=== PATIENT | female | born 1995 | race African-American/Black ===

== ENCOUNTER 2021-03-22 14:25 | Outpatient (CLI) | payer OTHER, SELFPAY ==
[2021-03-22 15:26] LABS: BASOPHILS % (AUTO) 0.3 % (0.0-2.0); EOSINOPHILS % (AUTO) 0.5 % (0.0-4.0); HEMATOCRIT 36.3 % (36-48); HEMOGLOBIN 11.8 g/dL (12.0-16.0); LYMPHOCYTES # (AUTO) 1.9 K/uL (2.5-16.5); LYMPHOCYTES % (AUTO) 31.1 % (20.5-51.1); MEAN CORPUSCULAR HEMOGLOBIN 25 pg (27-31); MEAN CORPUSCULAR HGB CONC 33 g/dL (33-37); MONOCYTES # (AUTO) 0.4 K/uL (0.8-1.0); MONOCYTES % (AUTO) 6.8 % (1.7-9.3); NEUTROPHILS # (AUTO) 3.8 K/uL (1.8-7.7); NEUTROPHILS % (AUTO) 61.3 % (42.2-75.2); PLATELET COUNT (AUTO) 157 K/uL (140-450); RED BLOOD CELL COUNT(AUTO) 4.72 MIL/uL (4.20-5.40); RED CELL DISTRIBUTION WIDTH 13.9 % (11.6-13.7); WHITE BLOOD COUNT (AUTO) 6.2 K/uL (4.8-10.8)
[2021-03-22 15:35] LABS: APPEARANCE,URINE SL CLOUDY (CLEAR); BILIRUBIN,URINE 1+ (NEGATIVE); BLOOD, URINE NEGATIVE (NEGATIVE); COLOR,URINE DARK YELLOW (YELLOW); LEUKOCYTE ESTERASE ,URINE NEGATIVE (NEGATIVE); NITRITE, URINE NEGATIVE (NEGATIVE); UGLUCOSE NEGATIVE (NEGATIVE)
[2021-03-22 18:14] LABS: ALBUMIN 3.5 g/dL (3.4-5.0); ANION GAP 16.6 (8-16); CREATININE 0.8 mg/dL (0.6-1.3); POTASSIUM 3.6 mmol/L (3.5-5.1); TOTAL BILIRUBIN 0.3 mg/dL (0.0-1.0)
== END 2021-03-22 23:59 | disposition home or self-care (01) ==
LOC: MLB 14:25 → EDSTATUS 03-24 07:30
PROVIDERS: ATTEND Obstetrics & Gynecology
DX: Z01.812 Encounter for preprocedural laboratory examination (principal); Z20.822 Contact with and (suspected) exposure to COVID-19; N87.1 Moderate cervical dysplasia
CPT/HCPCS: 36415; 80053; 81003; 85025; 86886; 86900; 86901; 87086

== ENCOUNTER 2022-01-19 06:24 | Day surgery (SDC) | payer OTHER ==
[~2022-01-19] VITALS: Ht 170.2 cm; Wt 65.3 kg
[~2022-01-19 06:24] MED LIST: FERR-212 PO; PNV91TAB8 PO
[2022-01-19 07:17] LABS: BASOPHILS # (AUTO) 0.1 K/uL (0.00-0.22); EOSINOPHILS # (AUTO) 0.1 K/uL (0-0.4); EOSINOPHILS % (AUTO) 1.9 % (0.0-4.0); HEMATOCRIT 37.5 % (36-48); HEMOGLOBIN 11.9 g/dL (12.0-16.0); LYMPHOCYTES # (AUTO) 2.8 K/uL (2.5-16.5); LYMPHOCYTES % (AUTO) 52.1 % (20.5-51.1); MEAN CORPUSCULAR HEMOGLOBIN 25 pg (27-31); MEAN CORPUSCULAR HGB CONC 32 g/dL (33-37); MEAN CORPUSCULAR VOLUME 77.3 fL (80-94); MONOCYTES # (AUTO) 0.4 K/uL (0.8-1.0); MONOCYTES % (AUTO) 7.9 % (1.7-9.3); NEUTROPHILS % (AUTO) 37.1 % (42.2-75.2); PLATELET COUNT (AUTO) 172 K/uL (140-450); RED BLOOD CELL COUNT(AUTO) 4.85 MIL/uL (4.20-5.40); RED CELL DISTRIBUTION WIDTH 14.6 % (11.6-13.7); WHITE BLOOD COUNT (AUTO) 5.3 K/uL (4.8-10.8)
[2022-01-19] MEDS ORDERED: fentaNYL citrate 0.05 MG/ML VIAL ONE (07:22)
[2022-01-19] MEDS ORDERED: PROPOFOL 200 MG/20 ML VIAL IV ONE (07:23)
[2022-01-19 07:36] LABS: ALBUMIN 3.5 g/dL (3.4-5.0); ANION GAP 10.6 (8-16); CARBON DIOXIDE 29.4 mmol/L (21-32); CREATININE 0.8 mg/dL (0.6-1.3); TOTAL BILIRUBIN 0.3 mg/dL (0.0-1.0)
[2022-01-19] MEDS ORDERED: SEVOFLURANE 250 ML BTL INH ONE (08:05)
[2022-01-19] MEDS ORDERED: GLYCOPYRROLATE 0.2 MG/ML VIAL ONE (08:19)
[2022-01-19] MEDS ORDERED: DEXAMETHASONE 4 MG/ML VIAL ONE (08:27)
[2022-01-19] MEDS ORDERED: ONDANSETRON 4 MG/2 ML VIAL ONE (08:27)
[2022-01-19] MEDS ORDERED: diphenhydrAMINE 50 MG/ML VIAL IVP PRN ×2 (08:35→08:50)
[2022-01-19] MEDS ORDERED: oxyCODONE/APAP 5/325 MG 1 TAB TAB PO PRN (08:35)
[2022-01-19] MEDS ORDERED: ONDANSETRON 4 MG/2 ML VIAL IVP PRN ×2 (08:35→08:50)
[2022-01-19] MEDS ORDERED: LACTATED RINGERS 1,000 ML IV SCH (08:50)
[2022-01-19] MEDS ORDERED: HYDROmorphone 1 MG/ML AMP IVP PRN (08:50)
[2022-01-19] MEDS ORDERED: MEPERIDINE 25 MG/ML SYR IVP PRN (08:50)
== END 2022-01-19 11:00 | disposition home or self-care (01) ==
LOC: MDS 06:24 → MMU 06:27 → MDS 11:00
PROVIDERS: ATTEND Obstetrics & Gynecology
DX: N87.1 Moderate cervical dysplasia (principal); N72 Inflammatory disease of cervix uteri; Z20.822 Contact with and (suspected) exposure to COVID-19; Z79.899 Other long term (current) drug therapy
CPT/HCPCS: 36415; 57522; 80053; 81025; 85025; 86886; 86900; 86901; 87426; 88305; J1100; J2405; J2704; J3010; J3490

== ENCOUNTER 2023-08-30 02:10 | Emergency (ER) | payer MEDICAID, OTHER ==
[~2023-08-30] VITALS: Ht 170.2 cm; Wt 72.6 kg
[2023-08-30 02:10] VITALS: BP 116/68; PULSE 82; RESP 17; TEMP 97.8; O2SAT 99
[2023-08-30] MEDS ORDERED: predniSONE 20 MG TAB PO ONE (03:05)
[2023-08-30] MEDS ORDERED: diphenhydrAMINE 50 MG/ML VIAL IM ONE (03:05)
[2023-08-30] MEDS ORDERED: PRED20TA5 PO (03:07)
[2023-08-30] MEDS ORDERED: DIPH25TA53 PO (03:07)
[2023-08-30 03:28] VITALS: BP 116/68; PULSE 82; RESP 17; TEMP 97.8; O2SAT 99
== END 2023-08-30 03:28 | disposition home or self-care (01) ==
LOC: MED 02:10
DX: R21 Rash and other nonspecific skin eruption (principal); L29.9 Pruritus, unspecified; J02.9 Acute pharyngitis, unspecified; Z79.899 Other long term (current) drug therapy; Z91.040 Latex allergy status
CPT/HCPCS: 96372; 99283; J1200; J7512

== ENCOUNTER 2023-12-28 16:43 | Emergency (ER) | payer MEDICAID ==
[~2023-12-28] VITALS: Ht 170.2 cm; Wt 65.3 kg
[~2023-12-28 16:43] MED LIST changes: +DIPH25TA53 PO; +PRED20TA5 PO
[2023-12-28 17:03] VITALS: BP 108/63; PULSE 79; RESP 19; TEMP 99.6; O2SAT 97
[2023-12-28 17:51] LABS: APPEARANCE,URINE CLEAR (CLEAR); BILIRUBIN,URINE NEGATIVE (NEGATIVE); BLOOD, URINE 1+ (NEGATIVE); COLOR,URINE YELLOW (YELLOW); LEUKOCYTE ESTERASE ,URINE NEGATIVE (NEGATIVE); NITRITE, URINE NEGATIVE (NEGATIVE); PH,URINE 6.5 (5.0-9.0); PROTEIN,URINE NEGATIVE (NEGATIVE); UGLUCOSE NEGATIVE (NEGATIVE); UROBILINOGEN,URINE 0.2 EU/dL (0.2 - 1)
[2023-12-28 18:00] LABS: BACTERIA,URINE 3+ /HPF (None Seen); MUCUS,URINE 1+ /LPF (None Seen); RBC,URINE 0-5 /HPF (0-5); SQUAMOUS EPITHELIAL CELL,UR 20-50 /LPF (0-3 (FEW)); TRICHOMONAS,URINE None Seen /HPF (None Seen); WBC,URINE 0-5 /HPF (0-5); YEAST,URINE None Seen /HPF (None Seen)
[2023-12-28 18:33] LABS: BASOPHILS % (AUTO) 0.6 % (0.0-2.0); EOSINOPHILS % (AUTO) 0.6 % (0.0-4.0); HEMATOCRIT 35.6 % (36-48); HEMOGLOBIN 11.8 g/dL (12.0-16.0); LYMPHOCYTES # (AUTO) 2.1 K/uL (2.5-16.5); LYMPHOCYTES % (AUTO) 31.9 % (20.5-51.1); MEAN CORPUSCULAR HEMOGLOBIN 25 pg (27-31); MEAN CORPUSCULAR HGB CONC 33 g/dL (33-37); MEAN CORPUSCULAR VOLUME 76.3 fL (80-94); MONOCYTES # (AUTO) 0.4 K/uL (0.8-1.0); MONOCYTES % (AUTO) 6.4 % (1.7-9.3); NEUTROPHILS # (AUTO) 3.9 K/uL (1.8-7.7); NEUTROPHILS % (AUTO) 60.5 % (42.2-75.2); PLATELET COUNT (AUTO) 153 K/uL (140-450); RED BLOOD CELL COUNT(AUTO) 4.67 MIL/uL (4.20-5.40); RED CELL DISTRIBUTION WIDTH 14.3 % (11.6-13.7); WHITE BLOOD COUNT (AUTO) 6.5 K/uL (4.8-10.8)
[2023-12-28] MEDS ORDERED: CEPH-588 PO (19:54)
[2023-12-28 20:03] VITALS: BP 106/56; PULSE 69; RESP 18; TEMP 97.9; O2SAT 98
== END 2023-12-28 20:03 | disposition home or self-care (01) ==
LOC: MED 16:43
DX: O46.92 Antepartum hemorrhage, unspecified, second trimester (principal); O23.92 Unspecified genitourinary tract infection in pregnancy, second trimester; R82.71 Bacteriuria; O34.12 Maternal care for benign tumor of corpus uteri, second trimester; Z3A.16 16 weeks gestation of pregnancy; Z98.890 Other specified postprocedural states; Z79.899 Other long term (current) drug therapy; Z91.040 Latex allergy status
CPT/HCPCS: 36415; 76817; 81001; 81025; 84702; 85025; 86900; 86901; 87086; 99284

== ENCOUNTER 2024-05-26 04:25 | Inpatient (IN) | payer MEDICAID ==
[~2024-05-26] VITALS: Ht 170.2 cm; Wt 74.8 kg
[~2024-05-26 04:25] MED LIST changes: +CEPH-588 PO
[2024-05-26 04:40] VITALS: BP 137/65; PULSE 62; RESP 18; TEMP 97.9
[2024-05-26] MEDS ORDERED: METHYLERGONOVINE 0.2 MG/ML AMP IM PRN ×2 (04:50→16:40)
[2024-05-26] MEDS ORDERED: AMPICILLIN 2,000 MG in NACL 0.9% MINI-BAG PLUS 100 ML IV SCH ×2 (04:50→08:10)
[2024-05-26] MEDS ORDERED: OXYTOCIN/0.9 % SODIUM CHLORIDE 500 ML IV SCH (04:50)
[2024-05-26] MEDS: LACTATED RINGERS 1,000 ML IV SCH (05:20)
[2024-05-26 05:24] LABS: BASOPHILS % (AUTO) 0.3 % (0.0-2.0); EOSINOPHILS % (AUTO) 0.5 % (0.0-4.0); HEMATOCRIT 33.4 % (36-48); HEMOGLOBIN 10.8 g/dL (12.0-16.0); LYMPHOCYTES # (AUTO) 2.5 K/uL (2.5-16.5); LYMPHOCYTES % (AUTO) 35.7 % (20.5-51.1); MEAN CORPUSCULAR HEMOGLOBIN 25 pg (27-31); MEAN CORPUSCULAR HGB CONC 32 g/dL (33-37); MEAN CORPUSCULAR VOLUME 77.9 fL (80-94); MONOCYTES # (AUTO) 0.7 K/uL (0.8-1.0); MONOCYTES % (AUTO) 9.3 % (1.7-9.3); NEUTROPHILS # (AUTO) 3.8 K/uL (1.8-7.7); NEUTROPHILS % (AUTO) 54.2 % (42.2-75.2); PLATELET COUNT (AUTO) 102 K/uL (140-450); RED BLOOD CELL COUNT(AUTO) 4.29 MIL/uL (4.20-5.40); RED CELL DISTRIBUTION WIDTH 14.5 % (11.6-13.7)
[2024-05-26] MEDS: MORPHINE SULFATE 10 MG/ML VIAL IVP PRN (05:24)
[2024-05-26] MEDS: ONDANSETRON 4 MG/2 ML VIAL IVP PRN (05:25)
[2024-05-26 05:39] LABS: INR 0.93 (0.8-1.2); PARTIAL THROMBOPLASTIN TIME 26.9 secs (22-35.6); PROTHROMBIN TIME 9.8 secs (10.8-13.4)
[2024-05-26 05:55] LABS: ALBUMIN 2.6 g/dL (3.4-5.0); ANION GAP 11.5 (8-16); CALCIUM 8.8 mg/dL (8.5-10.1); CARBON DIOXIDE 25.3 mmol/L (21-32); CREATININE 0.6 mg/dL (0.6-1.3); POTASSIUM 3.8 mmol/L (3.5-5.1); TOTAL BILIRUBIN 0.4 mg/dL (0.0-1.0); TOTAL PROTEIN, SERUM 6.6 g/dL (6.4-8.2)
[2024-05-26] MEDS ORDERED: ROPIVACAINE 0.2%/NS PREMIX 200 ML EPI ONE (07:26)
[2024-05-26] MEDS ORDERED: MORPHINE SULFATE 10 MG/ML VIAL IVP PRN (08:30)
[2024-05-26 08:49] VITALS: BP 120/56; PULSE 60; RESP 18; O2SAT 99
[2024-05-26] MEDS: MORPHINE SULFATE 10 MG/ML VIAL ONE (08:49)
[2024-05-26] MEDS ORDERED: AMPICILLIN 1,000 MG in NACL 0.9% MINI-BAG PLUS 50 ML IV SCH ×2 (09:00→12:00)
[2024-05-26 12:11] LABS: APPEARANCE,URINE SL CLOUDY (CLEAR); BILIRUBIN,URINE NEGATIVE (NEGATIVE); BLOOD, URINE 3+ (NEGATIVE); COLOR,URINE YELLOW (YELLOW); LEUKOCYTE ESTERASE ,URINE TRACE (NEGATIVE); NITRITE, URINE NEGATIVE (NEGATIVE); PH,URINE 6.5 (5.0-9.0); PROTEIN,URINE 2+ (NEGATIVE); UGLUCOSE NEGATIVE (NEGATIVE)
[2024-05-26 12:16] LABS: RBC,URINE TOO NUMEROUS TO COUN /HPF (0-5)
[2024-05-26 12:17] LABS: BACTERIA,URINE 1+ /HPF (None Seen); MUCUS,URINE 1+ /LPF (None Seen); SQUAMOUS EPITHELIAL CELL,UR 2 /LPF (0-3 (FEW)); WBC,URINE 0-5 /HPF (0-5)
[2024-05-26 12:23] LABS: AMPHETAMINE, URINE NEGATIVE ng/ml (NEG <=1000); BARBITURATE, URINE NEGATIVE ng/ml (NEG <=200); BENZODIAZEPINE, URINE NEGATIVE ng/mL (NEG <=200); CANNABINOID, URINE NEGATIVE ng/mL (NEG <=50); COCAINE, URINE NEGATIVE ng/mL (NEG <=300); OPIATE, URINE POSITIVE ng/mL (NEG <=2000); PHENCYCLIDINE SCREEN,URINE NEGATIVE ng/mL (NEG <=25)
[2024-05-26] MEDS ORDERED: METHYLERGONOVINE 0.2 MG TAB PO PRN (16:40)
[2024-05-26] MEDS ORDERED: MEASLES, MUMPS, AND RUBELLA 1 VIAL SQVAC ONE (16:40)
[2024-05-26] MEDS ORDERED: BENZOCAINE/MENTHOL 20%-0.5% 60 GM CAN TP PRN (16:40)
[2024-05-26] MEDS ORDERED: OXYTOCIN 10 UNITS/ML VIAL IM PRN (16:40)
[2024-05-26] MEDS ORDERED: MEASLES, MUMPS, AND RUBELLA 1 VIAL SQVAC SCH (16:50)
[2024-05-27] MEDS: IBUPROFEN 800 MG TAB PO PRN (01:32)
[2024-05-27 05:40] LABS: HEMATOCRIT 31.1 % (36-48); HEMOGLOBIN 10.2 g/dL (12.0-16.0)
== END 2024-05-27 16:45 | disposition home or self-care (01) | DRG 560 ==
LOC: MLD 04:25 → MFCC 14:30
PROVIDERS: ADMIT Obstetrics & Gynecology; ATTEND Obstetrics & Gynecology
PROC: 10E0XZZ Delivery of Products of Conception, External Approach (ICD-10-PCS; principal; 2024-05-26)
PROC: 3E0R3BZ Introduction of Anesthetic Agent into Spinal Canal, Percutaneous Approach (ICD-10-PCS; 2024-05-26)
PROC: 00HU33Z Insertion of Infusion Device into Spinal Canal, Percutaneous Approach (ICD-10-PCS; 2024-05-26)
DX: O42.92 Full-term premature rupture of membranes, unspecified as to length of time between rupture and onset of labor (principal); Z37.0 Single live birth; Z3A.37 37 weeks gestation of pregnancy
CPT/HCPCS: 36415; 51702; 59409; 80053; 80305; 81001; 85018; 85025; 85610; 85730; 86592; 86762; 86886; 86900; 86901; 87340; J2270; J2405; J2590; J2795

== ENCOUNTER 2024-06-06 12:57 | Inpatient (IN) | payer MEDICAID ==
[~2024-06-06] VITALS: Ht 162.6 cm; Wt 71.7 kg
[2024-06-06 13:03] VITALS: BP 115/59; PULSE 69; RESP 16; TEMP 98; O2SAT 98
[2024-06-06] MEDS: ACETAMINOPHEN 325 MG TAB PO ONE (13:41)
[2024-06-06 14:49] LABS: BASOPHILS % (AUTO) 0.6 % (0.0-2.0); EOSINOPHILS # (AUTO) 0.1 K/uL (0-0.4); EOSINOPHILS % (AUTO) 1.3 % (0.0-4.0); HEMATOCRIT 38.2 % (36-48); HEMOGLOBIN 12.1 g/dL (12.0-16.0); LYMPHOCYTES % (AUTO) 27.7 % (20.5-51.1); MEAN CORPUSCULAR HEMOGLOBIN 25 pg (27-31); MEAN CORPUSCULAR HGB CONC 32 g/dL (33-37); MEAN CORPUSCULAR VOLUME 78.4 fL (80-94); MONOCYTES # (AUTO) 0.7 K/uL (0.8-1.0); MONOCYTES % (AUTO) 9.9 % (1.7-9.3); NEUTROPHILS # (AUTO) 4.3 K/uL (1.8-7.7); NEUTROPHILS % (AUTO) 60.5 % (42.2-75.2); PLATELET COUNT (AUTO) 199 K/uL (140-450); RED BLOOD CELL COUNT(AUTO) 4.88 MIL/uL (4.20-5.40); RED CELL DISTRIBUTION WIDTH 14.6 % (11.6-13.7); WHITE BLOOD COUNT (AUTO) 7.1 K/uL (4.8-10.8)
[2024-06-06 14:59] LABS: ANION GAP 13.5 (8-16); CALCIUM 9.1 mg/dL (8.5-10.1); CARBON DIOXIDE 25.2 mmol/L (21-32); CREATININE 0.8 mg/dL (0.6-1.3); POTASSIUM 3.7 mmol/L (3.5-5.1)
[2024-06-06 15:03] LABS: ALBUMIN 2.8 g/dL (3.4-5.0); BILIRUBIN,DIRECT 0.2 mg/dL (0.0-0.3); TOTAL BILIRUBIN 0.6 mg/dL (0.0-1.0); TOTAL PROTEIN, SERUM 7.2 g/dL (6.4-8.2)
[2024-06-06 15:33] VITALS: O2SAT 97
[2024-06-06 16:33] LABS: APPEARANCE,URINE SL CLOUDY (CLEAR); BILIRUBIN,URINE 1+ (NEGATIVE); BLOOD, URINE 3+ (NEGATIVE); COLOR,URINE ORANGE (YELLOW); LEUKOCYTE ESTERASE ,URINE 1+ (NEGATIVE); NITRITE, URINE NEGATIVE (NEGATIVE); PH,URINE 7.5 (5.0-9.0); PROTEIN,URINE 1+ (NEGATIVE); UGLUCOSE NEGATIVE (NEGATIVE); UROBILINOGEN,URINE 0.2 EU/dL (0.2 - 1)
[2024-06-06 16:37] LABS: BACTERIA,URINE FEW /HPF (None Seen); ICTOTEST NEGATIVE (NEGATIVE); RBC,URINE 11-20 (MOD) /HPF (0-5); SQUAMOUS EPITHELIAL CELL,UR 0-3 (FEW) /LPF (0-3 (FEW))
[2024-06-06] MEDS ORDERED: PIPERACILLIN/TAZOBACTAM 3.375 GM VIAL IV ONE (16:39)
[2024-06-06] MEDS: PIPERACILLIN/TAZOBACTAM 3.375 GM in DEXTROSE 5% 50 ML IV ONE (17:19)
[2024-06-06 18:43] VITALS: O2SAT 97
[2024-06-06] MEDS: NACL 0.9% 1,000 ML IV SCH (19:40)
[2024-06-06] MEDS ORDERED: ONDANSETRON 4 MG/2 ML VIAL IVP PRN (19:40)
[2024-06-06] MEDS: MORPHINE SULFATE 4 MG/ML SYR ONE (19:53)
[2024-06-06] MEDS: MORPHINE SULFATE 4 MG/ML SYR IVP ONE (19:54)
[2024-06-06] MEDS: NACL 0.9% 1,000 ML IV ONE (19:55)
[2024-06-06 22:00] VITALS: BP 120/62; PULSE 63; RESP 19; TEMP 97; O2SAT 99
[2024-06-06] MEDS: MORPHINE SULFATE 2 MG/ML SYR IVP PRN (23:48)
[2024-06-07] MEDS: ACETAMINOPHEN 325 MG TAB PO PRN (00:38)
[2024-06-07 04:30] VITALS: BP 123/67; PULSE 53; RESP 19; TEMP 96.8; O2SAT 96
[2024-06-07 04:55] LABS: BASOPHILS # (AUTO) 0.1 K/uL (0.00-0.22); BASOPHILS % (AUTO) 1.1 % (0.0-2.0); EOSINOPHILS # (AUTO) 0.2 K/uL (0-0.4); EOSINOPHILS % (AUTO) 2.3 % (0.0-4.0); HEMATOCRIT 34.7 % (36-48); HEMOGLOBIN 11.2 g/dL (12.0-16.0); LYMPHOCYTES # (AUTO) 2.1 K/uL (2.5-16.5); LYMPHOCYTES % (AUTO) 31.7 % (20.5-51.1); MEAN CORPUSCULAR HEMOGLOBIN 25 pg (27-31); MEAN CORPUSCULAR HGB CONC 32 g/dL (33-37); MONOCYTES # (AUTO) 0.7 K/uL (0.8-1.0); MONOCYTES % (AUTO) 9.9 % (1.7-9.3); NEUTROPHILS # (AUTO) 3.7 K/uL (1.8-7.7); PLATELET COUNT (AUTO) 185 K/uL (140-450); RED BLOOD CELL COUNT(AUTO) 4.51 MIL/uL (4.20-5.40); RED CELL DISTRIBUTION WIDTH 14.5 % (11.6-13.7); WHITE BLOOD COUNT (AUTO) 6.7 K/uL (4.8-10.8)
[2024-06-07 05:06] LABS: ALBUMIN 2.2 g/dL (3.4-5.0); ANION GAP 13.8 (8-16); CALCIUM 7.9 mg/dL (8.5-10.1); CARBON DIOXIDE 22.7 mmol/L (21-32); CREATININE 0.6 mg/dL (0.6-1.3); MAGNESIUM 1.6 mg/dL (1.8-2.4); POTASSIUM 3.5 mmol/L (3.5-5.1); TOTAL BILIRUBIN 0.4 mg/dL (0.0-1.0)
[2024-06-07 08:00] VITALS: BP 120/73; PULSE 78; RESP 17; RESP 18; TEMP 98.1; O2SAT 98
[2024-06-07] MEDS: KETOROLAC 30 MG/ML VIAL IM SCH (12:00)
[2024-06-07] MEDS: KETOROLAC 30 MG/ML VIAL ONE (12:14)
[2024-06-07] MEDS ORDERED: SEVOFLURANE 250 ML BTL INH ONE (12:25)
[2024-06-07] MEDS: fentaNYL citrate 0.05 MG/ML VIAL ONE (12:48)
[2024-06-07] MEDS: ONDANSETRON 4 MG/2 ML VIAL ONE (12:49)
[2024-06-07] MEDS: MIDAZOLAM 2 MG/2 ML VIAL ONE (12:49)
[2024-06-07] MEDS: PIPERACILLIN/TAZOBACTAM 3.375 GM VIAL IV ONE (12:51)
[2024-06-07] MEDS: METOCLOPRAMIDE 10 MG/2 ML INJ VIAL ONE (13:10)
[2024-06-07] MEDS: OXYTOCIN 10 UNITS/ML VIAL ONE (13:16)
[2024-06-07] MEDS: LIDOCAINE MPF 2% 100 MG/5 ML VIAL INJ ONE (13:16)
[2024-06-07] MEDS: PROPOFOL 200 MG/20 ML VIAL IV ONE (13:17)
[2024-06-07] MEDS ORDERED: HYDROmorphone 1 MG/ML AMP IVP PRN (13:30)
[2024-06-07] MEDS ORDERED: diphenhydrAMINE 50 MG/ML VIAL IVP PRN (13:30)
[2024-06-07] MEDS ORDERED: ONDANSETRON 4 MG/2 ML VIAL IVP PRN (13:30)
[2024-06-07] MEDS: LACTATED RINGERS 1,000 ML IV SCH (13:30)
[2024-06-07] MEDS ORDERED: MEPERIDINE 25 MG/ML SYR IVP PRN (13:30)
[2024-06-07] MEDS: MAGNESIUM OXIDE 400 MG TAB PO SCH (14:23)
[2024-06-07 16:00] VITALS: BP 119/70; PULSE 78; RESP 18; TEMP 97.9; O2SAT 98
[2024-06-07] MEDS: PIPERACILLIN/TAZOBACTAM 3.375 GM in DEXTROSE 5% 50 ML IV SCH (17:50)
[2024-06-07 20:00] VITALS: PULSE 60; RESP 18; O2SAT 99
[2024-06-08] VITALS: BP 97/57; PULSE 60; RESP 18; TEMP 97.5; O2SAT 99
[2024-06-08 08:00] VITALS: BP 134/67; PULSE 65; PULSE 66; RESP 17; RESP 18; TEMP 97.8; O2SAT 96
[2024-06-08] MEDS ORDERED: KETO10TA2 PO (13:06)
[2024-06-08 13:42] VITALS: BP 134/67; PULSE 65; RESP 17; TEMP 97.8
== END 2024-06-08 14:50 | disposition home or self-care (01) | DRG 548 ==
LOC: MED 12:57 → MMU 19:42
PROVIDERS: ADMIT Hospitalist; ATTEND Hospitalist
PROC: 10D17ZZ Extraction of Products of Conception, Retained, Via Natural or Artificial Opening (ICD-10-PCS; principal; 2024-06-07 12:30)
DX: O73.1 Retained portions of placenta and membranes, without hemorrhage (principal); O86.12 Endometritis following delivery; Z20.822 Contact with and (suspected) exposure to COVID-19; Z79.899 Other long term (current) drug therapy
CPT/HCPCS: 36415; 76830; 80048; 80053; 80076; 81001; 83690; 83735; 85025; 87081; 87086; 88305; 96365; 96375; 99285; J1885; J2001; J2250; J2270; J2405; J2543; J2590; J2704; J2765; J3010; J7030; J7060; J7120; Q0092